=== PATIENT | male | born 1970 | race African-American/Black ===

== ENCOUNTER 2021-08-10 10:27 | Emergency (ER) | payer OTHER ==
[~2021-08-10] VITALS: Ht 172.7 cm; Wt 78.0 kg
== END 2021-08-10 13:23 | disposition home or self-care (01) ==
LOC: ER 10:27
DX: S29.011A Strain of muscle and tendon of front wall of thorax, initial encounter (principal); M62.830 Muscle spasm of back; X58.XXXA Exposure to other specified factors, initial encounter; Y93.89 Activity, other specified; Y92.89 Other specified places as the place of occurrence of the external cause; Y99.8 Other external cause status